=== PATIENT | female | born 1965 | race Caucasian/White ===

== ENCOUNTER → 2021-11-10 | Day surgery (SDC) | payer BC ==
[~2021-11-10] MED LIST: LACTATED RINGERS 1,000 ML IV SCH; PROPOFOL 10 MG/ML 20 ML VIAL IV ONE
[2021-11-10 08:42] VITALS: RESP 16; TEMP 98.5
--- NOTE | 2021-11-10 09:30 | P.PCN ---
Date of Procedure: 11/10/21 Procedure(s) Performed: BRIEF HISTORY: Patient is a 56-year-old pleasant white female scheduled for an elective colonoscopy as a part of screening for colorectal neoplasia. Her brother was diagnosed with familial polyposis syndrome and underwent total colectomy. The patient underwent genetic testing which was negative. Last colonoscopy was 8 years ago. PROCEDURE PERFORMED: Colonoscopy with snare polypectomy. PREOPERATIVE DIAGNOSIS: Screening for colon cancer and family history of polyposis syndrome. IV sedation per Anesthesia. PROCEDURE: After informed consent was obtained, the patient, was brought into the endoscopy unit. IV sedation was administered by Anesthesia under continuous monitoring. Digital rectal examination was normal. Initially the Olympus CF-160 flexible video colonoscope was then inserted in the rectum, gradually advanced into the cecum without any difficulty. Careful examination was performed as the scope was gradually being withdrawn. Ileocecal valve and the appendiceal orifice were visualized and appeared normal. Prep was excellent. The cecum there was a 7-8 mm polyp that was removed by snare polypectomy. Mucosa of the cecum, ascending colon, transverse colon, descending colon, sigmoid colon, and rectum appeared normal. Retroflexion was performed in the rectum and no lesions were seen. The patient tolerated the procedure well. IMPRESSION: 7-8 mm cecal polyp serous posterior polypectomy Rest of the colon appeared normal RECOMMENDATIONS: Findings of this examination were discussed with the patient as her family. She was advised to follow with the biopsy results. If the biopsy results adenoma she can have a repeat colonoscopy in 5 years.
[2021-11-10 09:55] VITALS: BP 126/83; PULSE 65
== END | disposition home or self-care (01) ==
LOC: ORWHC2ENDO 08:14
PROVIDERS: ATTEND Internal Medicine Gastroenterology
DX: Z12.11 Encounter for screening for malignant neoplasm of colon (principal); D12.0 Benign neoplasm of cecum; Z83.71 Family history of colonic polyps
CPT/HCPCS: 88305; 45385; J2704

== ENCOUNTER → 2024-01-13 | Outpatient (CLI) | payer BC ==
[2024-01-14 07:16] LABS: Cryptosporidium Antigen Negative (Negative)
== END | disposition home or self-care (01) ==
LOC: LABWHC1 13:30
PROVIDERS: ATTEND Family Medicine
DX: R19.7 Diarrhea, unspecified (principal)
CPT/HCPCS: 87045; 87046; 87324; 87328; 87329

== ENCOUNTER → 2025-02-11 | Outpatient (CLI) | payer BC ==
--- NOTE | 2025-02-11 16:05 | MR ---
INDICATION: Patient age:Female; 59 years old; Reason for study: R94.02 ABNORMAL BRAIN SCAN; [facility]. COMPARISON: Only outside institution CT report 08/17/2024. TECHNIQUE: Multi planar, multi sequence imaging was performed through the brain. The patient was then given 8.5 cc of Gadobutrol intravenously and multi planar, T1 fat-saturation images were obtained. FINDINGS: The tesfaye-white junctions, ventricular system, basal cisterns appear unremarkable. Moderate atrophy of the bilateral frontal lobes. Nonenhancing left middle cranial fossa anterior aspect CSF attenuating arachnoid cyst measuring grossly 2.5 x 2.0 cm. Diffusion-weighted imaging shows no evidence of restri cted diffusion to suggest acute/subacute infarct. Intracranial arterial flow voids are maintained. Mi dline structures show no abnormality. Few patchy foci of high T2/FLAIR signal intensity are seen with in the supratentorial subcortical white matter. Largest within the right frontal lobe measures up to 5 mm (series 601, image 20). Approximately 10 foci. The susceptibility weighted images do not reveal any evidence for micro-hemorrhage. After administration of gadolinium, no abnormal enhancement is see n. The bone marrow signal is within normal limits. The paranasal sinuses and globes are unremarkable. IMPRESSION: 1. No evidence of acute/subacute infarct or abnormal enhancement. 2. Moderate nonspecific bilateral frontal lobe atrophy. 3. Minimal nonenhancing nonspecific white matter changes, likely related to small vessel ischemic dis ease. Demyelinating disease, chronic migraines, vasculitis, Lyme disease are other considerations. 4. Left middle cranial fossa benign arachnoid cyst. [facility], , 02/11/2025 4:02 PM
== END | disposition home or self-care (01) ==
LOC: RADMRIMAIN 14:20
PROVIDERS: ATTEND Psychiatry & Neurology Neurology
DX: R94.02 Abnormal brain scan (principal); R90.82 White matter disease, unspecified; G93.89 Other specified disorders of brain; G43.909 Migraine, unspecified, not intractable, without status migrainosus
CPT/HCPCS: 70553; A9585